=== PATIENT | female | born 1930 | race Hispanic/Latino ===

== ENCOUNTER 2018-08-18 18:13 | Emergency (ER) | payer MEDICARE ==
[~2018-08-18] VITALS: Ht 160 cm; Wt 74.8 kg
[~2018-08-18 18:13] MED LIST: ATORVASTATIN CA10 MG PO; COMBIGAN EYE DRO5 ML OU; GLUCOPHAGE XL500 MG; HUMALOG100 UNIT/1 SQ; LANTUS100 UNITS/ SQ; LEVOTHYROXINE75 MCG PO; LOSARTAN POTASS25 MG PO; LUMIGAN2.5 M1 OP; METOPROLOL TART25 MG PO; Z.0.LEVOTHROID75 MCG; Z.0.PRINIVIL20 MG
[2018-08-18] MEDS ORDERED: CLINDAMYCIN HCL 150 MG CAP PO ONE (19:00)
[2018-08-18] MEDS ORDERED: CLINDAMYCIN PHOS 600 MG/ 4 ML VIAL IM ONE (19:15)
== END 2018-08-18 19:06 | disposition home or self-care (01) ==
LOC: FSED 18:13
DX: L03.031 Cellulitis of right toe (principal); R21 Rash and other nonspecific skin eruption
CPT/HCPCS: 99282